=== PATIENT | female | born 1965 | race Caucasian/White ===

== ENCOUNTER 2020-07-14 14:06 | Inpatient (IN) ==
[2020-07-14] MEDS ORDERED: 0.9 % SODIUM CHLORIDE 1,000 ML IV ONE (15:20)
--- NOTE | 2020-07-14 15:20 | Emergency Department Note ---
SOB HPI General Chief Complaint: Shortness of Breath/Dyspnea Stated Complaint: shortness of breath Time Seen by Provider: 07/14/20 15:00 Source: patient Mode of arrival: ambulatory Limitations: no limitations History of Present Illness HPI Narrative: This pleasant 54-year-old female was tested 7 days ago due to upper respiratory signs and symptoms and then 5 days ago was told of her positive test results for COVID. She is having decreased smell, decreased taste, generalized body achiness, temperatures up to 101 or so in the past several days for which she takes ibuprofen, has had cough and some wheezing. Is an asthmatic who takes Flovent 220 mcg 3 puffs twice a day plus Advair 500/51 puff twice daily, Ventolin, DuoNeb nebulizers 6-hour intervals, montelukast once daily, clonazepam as needed, no steroid spray for allergies, etc. She is here because her symptoms seem to be worsening. She reports home oximetry 86-88% sometimes up to 91%. She has had a hard time keeping food and fluids down. She is having diarrhea 4-5 times a day for several days as well as vomiting 2 or 3 times per day. She is taking her second moderately large bottle of Gatorade the first today but still feels quite dry. Normal heart rate in the mid 70s (93 in triage). Related Data Home Medications Medication Instructions Recorded Confirmed clonazepam 1 mg tablet 1 mg PO Q8H PRN tab 09/13/19 07/15/20 levothyroxine 125 mcg tablet 112 mcg PO QDAY 09/13/19 07/15/20 metoprolol succinate 25 mg 25 mg PO QDAY 09/13/19 07/15/20 tablet,extended release 24 hr montelukast 10 mg tablet 10 mg PO QDAY tab 09/13/19 07/15/20 promethazine 25 mg tablet 12.5 mg PO .COMPLEX PRN 09/13/19 07/15/20 tramadol 50 mg tablet 50 mg PO .COMPLEX PRN 09/13/19 07/15/20 diphenhydramine HCl 12.5 mg/5 mL 12.5 mg PO Q8H PRN 09/17/19 07/15/20 oral liquid ipratropium 0.5 mg-albuterol 3 mg 3 ml INHALATION QID PRN 12/30/19 09/16/20 (2.5 mg base)/3 mL nebulization soln nebulizers #1 each 10/28/19 07/14/20 fluticasone propion-salmeterol 1 inh INHALATION BID 07/14/20 07/15/20 [Advair Diskus] fluticasone propionate [Flovent 2 inh INHALATION BID 07/14/20 07/15/20 HFA] Previous Rx's Medication Instructions Recorded albuterol sulfate 90 mcg/actuation 2 puff INHALATION Q4H PRN #18 g 09/17/19 aerosol inhaler hydroxyzine pamoate 25 mg capsule 25 mg PO BID #60 cap 09/17/19 epinephrine 0.3 mg/0.3 mL 0.3 ml IM ONCE #2 each 09/19/19 injection, auto-injector fluticasone 500 mcg-salmeterol 50 1 inh INHALATION BID #60 each 02/03/20 mcg/dose blistr powdr for inhalation Allergies Allergy/AdvReac Type Severity Reaction Status Date / Time latex Allergy Severe Swelling Verified 07/14/20 14:11 of Lip/Tongue/Throat Penicillins Allergy Mild Hives Verified 07/15/20 06:35 codeine AdvReac Mild Nausea Verified 07/15/20 06:35 gluten AdvReac Mild Vomiting Verified 07/15/20 06:35 Review of Systems ROS ROS Narrative: Has had fevers and chills and sweats. Some shortness of breath that is seeming to worsen. She describes as above having some saturations 86-88% at home on an oximeter that she reports as fresh batteries. She reports her usual heart rate to be in the mid 70s. Nausea and vomiting and diarrhea as above. No hematochezia No dysuria Some body aches all over. No pains in her calves. [facility] Narrative Patient History Narrative: Narrative: Medical/Surgical/Family History All Active Problems (Updated 07/14/20 @ 20:04 by Darryl Rodríguez DO) Pneumonia due to COVID-19 virus (Acute) Asthma (Acute) Hypoxia (Acute) Obesity (BMI 30.0-34.9) (Acute) Full code status (Acute) Allergy (Chronic) ROCIO (obstructive sleep apnea) (Chronic) Cat allergy due to both airborne and skin contact (Chronic) Environmental allergies (Chronic) Multiple joint pain (Chronic) Dizziness (Chronic) Pain, unspecified (Chronic) Other specified anemias (Chronic) Nausea and vomiting (Chronic) Elevated liver enzymes (Chronic) Shortness of breath (Chronic) Cough (Chronic) Low back pain (Chronic) Fatigue (Chronic) Vitamin D deficiency (Chronic) Pain of right hip joint (Chronic) Celiac disease (Chronic) Other specified hypothyroidism (Chronic) Essential hypertension (Chronic) Asthma (Chronic) Medical History (Updated 07/14/20 @ 20:04 by Darryl Rodríguez DO) Asthma (Chronic) Bronchitis (Resolved) Bronchospasm (Inactive) Cat allergy due to both airborne and skin contact (Chronic) Celiac disease (Chronic) Cervical strain, acute (Inactive) Cough (Chronic) Diarrhea (Resolved) Dizziness (Chronic) Elevated liver enzymes (Chronic) Environmental allergies (Chronic) Essential hypertension (Chronic) Fatigue (Chronic) Low back pain (Chronic) Multiple joint pain (Chronic) Nausea and vomiting (Chronic) ROCIO (obstructive sleep apnea) (Chronic) Other specified anemias (Chronic) Other specified hypothyroidism (Chronic) Pain of right hip joint (Chronic) Pain, unspecified (Chronic) Shortness of breath (Chronic) Vitamin D deficiency (Chronic) Surgical History History of section (Chronic) History of cholecystectomy (Chronic) History of nasal septoplasty (Chronic) History of surgery on left wrist (Chronic) History of tonsillectomy (Chronic) History of umbilical hernia repair (Chronic) Family History Alcoholism Father Breast cancer Sister Social History Smoking Status: Never smoker Alcohol Intake Frequency: holiday/special occasion only Exam Narrative Narrative: Narrative: General Limitations: no limitations General appearance: alert, in no apparent distress, malaise (Moderate) and nontoxic Head Head: atraumatic and normocephalic Eye Eye: Present normal appearance and EOMI ENT ENT: Present mucous membranes dry and other (Normal midline tongue and uvula. No exudate on the tonsillar bed areas.) Neck Neck: Present trachea midline; Absent lymphadenopathy and thyromegaly Chest Chest: Present symmetric chest wall rise Respiratory Respiratory: Present normal lung sounds bilaterally; Absent respiratory distress, rales/crackles, wheezes, stridor, accessory muscle use and prolonged expiratory phase Cardiovascular Cardiovascular: Present regular rate, normal rhythm and other (Heart rate frequently 90-95.); Absent tachycardia, systolic murmur and diastolic murmur Adbominal Abdominal: Present soft; Absent distention, tenderness, guarding, rebound, rigidity, organomegaly and mass Extremities Extremities: Absent pedal edema, pretibial edema, calf tenderness and cyanosis Back Back: Neurological Neurological: Present alert and oriented X3 Psychiatric Psychiatric: Present normal affect, polite and pleasant; Absent depressed, agitated, anxious and poor eye contact Skin Skin: Present warm and dry; Absent cyanosis and pallor Course Vital Signs Vital signs: Vital Signs Temperature 97.6 F 07/14/20 14:08 Pulse Rate 113 H 07/14/20 14:08 Respiratory Rate 20 07/14/20 14:08 Blood Pressure 150/101 07/14/20 14:08 Pulse Oximetry (%) 95 07/14/20 14:08 Temperature 98.3 F 07/15/20 08:01 Pulse Rate 82 07/15/20 10:01 Respiratory Rate 18 07/15/20 10:01 Blood Pressure 139/87 07/15/20 10:01 Pulse Oximetry (%) 96 07/15/20 10:01 [facility] Narrative Medical decision making narrative: Recent constitutional symptoms plus fever plus chest discomfort plus increasing shortness of breath and a COVID positive patient now on day 7 from the original positive test collection and symptomatic for days prior to that. Because of multiple symptoms and some risk factors we will go ahead with cardiac and respiratory work-up with EKG, chest x-ray, labs. Saturations on room air in the room now around 91 to 99% variable most of the time around 93-94. 3:58 PM - EKG demonstrates sinus rhythm with no ACS. 4:42 PM - chest x-ray results: FINDINGS: There are mild alveolar opacities in the a patchy distribution in both lungs. This is most apparent laterally in the middle third of the left lung. There is also a band of discoid atelectasis above the left diaphragm. No pleural effusion is present. No adenopathy is detected. The heart size is normal. IMPRESSION: Mild bilateral pneumonia 4:43 PM - labs include white count 6.2 hemoglobin and hematocrit in normal ranges. Lactic acid is 1.0. Electrolytes unremarkable. Carbon dioxide is 21. Anion gap is 14. LFTs mildly elevated at 56 and 109 Troponin less than 0.01. Procalcitonin pending. 5:20 PM - saturations dropping occasionally down as low as 87%. We will do ABG. ABG was relatively unremarkable. I spoke with hospitalist who is willing to accept this patient. 7:42 PM - 7:45 PM - spoke with patient regarding remdesivir and received her permission/consent. Lab Data Result diagrams: 07/15/20 04:50 07/15/20 04:50 Labs: Lab Results 07/14/20 07/14/20 07/14/20 Range/Units 15:34 15:34 15:34 WBC 6.2 (4.50-11.00) K/mcL RBC 4.61 (3.59-5.38) M/mcL Hgb 13.9 (11.2-15.7) g/dL Hct 40.8 (34.1-44.9) % MCV 88.5 (80.0-100.0) fL MCH 30.2 (26.0-34.0) pg MCHC 34.1 (31.0-36.0) g/dL RDW 12.9 (11.5-14.5) % Plt Count 162 (140-440) K/mcL MPV 10.2 (7.4-10.4) fL Gran % 65.1 (38.0-78.0) % Lymph % (Auto) 26.5 (15.5-49.0) % Price % (Auto) 7.6 (1.0-12.0) % Eos % (Auto) 0.6 (0.0-7.0) % Baso % (Auto) 0.2 (0.0-2.0) % Gran # 4.02 (1.80-8.00) K/mcL Lymph # (Auto) 1.64 (1.50-4.80) K/mcL Price # (Auto) 0.47 (0.10-0.90) K/mcL Eos # (Auto) 0.04 (0.00-0.70) K/mcL Baso # (Auto) 0.01 (0.00-0.30) K/mcL VBG Lactic Acid 1.0 (0.5-2.0) mmol/L Sodium (133-145) mmol/L Potassium (3.3-5.1) mmol/L Chloride (96-108) mmol/L Carbon Dioxide (22-30) mmol/L Anion Gap (8-16) BUN (6-20) mg/dl Creatinine (0.6-1.1) mg/dl GFR Calculation Glucose (70-105) mg/dL Calcium (8.6-10.4) mg/dl Total Bilirubin (0.0-1.0) mg/dL AST (0-37) U/l ALT (0-40) U/l Alkaline Phosphatase (39-117) U/L Troponin T (0-0.03) ng/ml Total Protein (5.9-8.4) gm/dL Albumin (3.2-5.2) gm/dL Globulin (2.2-3.7) gm/dL Albumin/Globulin Ratio (1.0-2.3) Procalcitonin 0.11 (<0.10) ng/mL 07/14/20 07/14/20 Range/Units 15:34 15:34 WBC (4.50-11.00) K/mcL RBC (3.59-5.38) M/mcL Hgb (11.2-15.7) g/dL Hct (34.1-44.9) % MCV (80.0-100.0) fL MCH (26.0-34.0) pg MCHC (31.0-36.0) g/dL RDW (11.5-14.5) % Plt Count (140-440) K/mcL MPV (7.4-10.4) fL Gran % (38.0-78.0) % Lymph % (Auto) (15.5-49.0) % Price % (Auto) (1.0-12.0) % Eos % (Auto) (0.0-7.0) % Baso % (Auto) (0.0-2.0) % Gran # (1.80-8.00) K/mcL Lymph # (Auto) (1.50-4.80) K/mcL Price # (Auto) (0.10-0.90) K/mcL Eos # (Auto) (0.00-0.70) K/mcL Baso # (Auto) (0.00-0.30) K/mcL VBG Lactic Acid (0.5-2.0) mmol/L Sodium 138 (133-145) mmol/L Potassium 4.0 (3.3-5.1) mmol/L Chloride 103 (96-108) mmol/L Carbon Dioxide 21 L (22-30) mmol/L Anion Gap 14.0 (8-16) BUN 13 (6-20) mg/dl Creatinine 0.9 (0.6-1.1) mg/dl GFR Calculation 71 Glucose 108 H (70-105) mg/dL Calcium 9.2 (8.6-10.4) mg/dl Total Bilirubin 0.5 (0.0-1.0) mg/dL AST 56 H (0-37) U/l ALT 109 H (0-40) U/l Alkaline Phosphatase 118 H (39-117) U/L Troponin T < 0.01 (0-0.03) ng/ml Total Protein 7.0 (5.9-8.4) gm/dL Albumin 4.0 (3.2-5.2) gm/dL Globulin 3.0 (2.2-3.7) gm/dL Albumin/Globulin Ratio 1.3 (1.0-2.3) Procalcitonin (<0.10) ng/mL Discharge Plan Patient/Caregiver Discharge Instructions Pt seen by ENVIRONMENTAL JOURNALIST/PA only: No Clinical Impression: Pneumonia due to COVID-19 virus, Hypoxia, Obesity (BMI 30.0-34.9), Full code status Asthma Qualifiers: Asthma severity: severe Asthma persistence: persistent Asthma complication type: unspecified Qualified Code(s): J45.50 - Severe persistent asthma, uncomplicated Patient Disposition: Xfer As Inpt ([facility]) Discharge Date/Time: 07/14/20 20:48
[2020-07-14] MEDS ORDERED: ONDANSETRON 4 MG/2 ML VIAL IV ONE ×3 (15:21→18:49)
[2020-07-14 16:05] LABS: Basophils # (Auto) 0.01 K/mcL (0.00-0.30); Basophils % (Auto) 0.2 % (0.0-2.0); Eosinophils # (Auto) 0.04 K/mcL (0.00-0.70); Eosinophils % (Auto) 0.6 % (0.0-7.0); Granulocytes % (Auto) 65.1 % (38.0-78.0); Hematocrit 40.8 % (34.1-44.9); Hemoglobin 13.9 g/dL (11.2-15.7); Lymphocytes # (Auto) 1.64 K/mcL (1.50-4.80); Lymphocytes % (Auto) 26.5 % (15.5-49.0); Mean Cell Volume 88.5 fL (80.0-100.0); Mean Corpuscular HGB Conc 34.1 g/dL (31.0-36.0); Mean Platelet Volume 10.2 fL (7.4-10.4); Monocytes # (Auto) 0.47 K/mcL (0.10-0.90); Monocytes % (Auto) 7.6 % (1.0-12.0); Platelet Count 162 K/mcL (140-440); RBC 4.61 M/mcL (3.59-5.38); Red Cell Distribution Width 12.9 % (11.5-14.5); WBC 6.2 K/mcL (4.50-11.00)
--- NOTE | 2020-07-14 16:28 | XRay Report ---
HISTORY: Short of breath and positive Covid test FINDINGS: There are mild alveolar opacities in the a patchy distribution in both lungs. This is most apparent laterally in the middle third of the left lung. There is also a band of discoid atelectasis above the left diaphragm. No pleural effusion is present. No adenopathy is detected. The heart size is normal. IMPRESSION: Mild bilateral pneumonia Interpreted and Authenticated by: Jaime Evans 07/14/20
[2020-07-14 16:29] LABS: ALT/SGPT 109 U/l (0-40); AST/SGOT 56 U/l (0-37); Albumin/Globulin Ratio 1.3 (1.0-2.3); Alkaline Phosphatase 118 U/L (39-117); Bilirubin,Total 0.5 mg/dL (0.0-1.0); Blood Urea Nitrogen 13 mg/dl (6-20); Calcium 9.2 mg/dl (8.6-10.4); Carbon Dioxide 21 mmol/L (22-30); Chloride 103 mmol/L (96-108); Glomerular Filtration Rate 71; Glucose 108 mg/dL (70-105)
[2020-07-14] MEDS ORDERED: ACETAMINOPHEN 325 MG TABLET PO ONE (17:39)
[2020-07-14] MEDS ORDERED: DEXAMETHASONE 4 MG TABLET PO ONE (18:39)
--- NOTE | 2020-07-14 18:59 | Internal Med History&Physical ---
HPI History of Present Illness Patient information: Note initiated : 07/14/20 at 6:57 pm Service Date, if different from initiated Date: [] Patient: Kristen Mckeon a 54 y/o F admitted on for shortness of breath. Chief Complaint: Weakness, shortness of breath History of present illness: Ms. Mckeon is a 54 year old F with a history of asthma/hypothyroidism/hypertension who works at [employer] Patient has been experiencing things of low-grade fever weakness and malaise and has been tested for COVID last Monday and subsequently on which came back positive. Since then patient has self quarantined at home but has noticed worsening of her shortness of breath/weakness. She presents today to the ER significantly hypoxic in low 80s requiring 2 L oxygen to achieve saturation to 92%. Chest imaging consistent with bilateral infiltrates/COVID pneumonia. Patient was started on antiviral loading dose/dexamethasone after discussion of risks and benefits. Subsequently hospitalist service was consulted. At the time of my evaluation patient is alert and oriented. She is able to answer most of the questions. She endorses to exposure to sick contacts including multiple residents at [facility] with COVID positive. Denies loss of smell but endorses lack of appetite. Denies diarrhea, dysuria, headache, photophobia or chest palpitation. Review of systems 10 point review system was performed and is negative except for ones cussed above PFSH PFSH All Active Problems (Updated 07/14/20 @ 15:18 by Darryl Rodríguez DO) Allergy (Chronic) ROCIO (obstructive sleep apnea) (Chronic) Cat allergy due to both airborne and skin contact (Chronic) Environmental allergies (Chronic) Multiple joint pain (Chronic) Dizziness (Chronic) Pain, unspecified (Chronic) Other specified anemias (Chronic) Nausea and vomiting (Chronic) Elevated liver enzymes (Chronic) Shortness of breath (Chronic) Cough (Chronic) Low back pain (Chronic) Fatigue (Chronic) Vitamin D deficiency (Chronic) Pain of right hip joint (Chronic) Celiac disease (Chronic) Other specified hypothyroidism (Chronic) Essential hypertension (Chronic) Asthma (Chronic) Medical History (Updated 07/14/20 @ 15:18 by Darryl Rodríguez DO) Asthma (Chronic) Bronchitis (Resolved) Bronchospasm (Inactive) Cat allergy due to both airborne and skin contact (Chronic) Celiac disease (Chronic) Cervical strain, acute (Inactive) Cough (Chronic) Diarrhea (Resolved) Dizziness (Chronic) Elevated liver enzymes (Chronic) Environmental allergies (Chronic) Essential hypertension (Chronic) Fatigue (Chronic) Low back pain (Chronic) Multiple joint pain (Chronic) Nausea and vomiting (Chronic) ROCIO (obstructive sleep apnea) (Chronic) Other specified anemias (Chronic) Other specified hypothyroidism (Chronic) Pain of right hip joint (Chronic) Pain, unspecified (Chronic) Shortness of breath (Chronic) Vitamin D deficiency (Chronic) Surgical History History of section (Chronic) History of cholecystectomy (Chronic) History of nasal septoplasty (Chronic) History of surgery on left wrist (Chronic) History of tonsillectomy (Chronic) History of umbilical hernia repair (Chronic) Family History Father Alcoholism Sister Breast cancer Social History (Updated 02/03/20 @ 15:20 by Simon Thomas MD) marital status: occupational status: employed physical activity: walking and other smoking status: Never smoker alcohol intake frequency: holiday/special occasion only MEDS/ALLERGIES Home Medications and Allergies Home Medications Medication Instructions Recorded Confirmed Type clonazepam 1 mg tablet 1 mg PO Q8H PRN tab 09/13/19 07/14/20 History levothyroxine 125 mcg tablet 125 mcg PO QDAY 09/13/19 07/14/20 History metoprolol succinate 25 mg 25 mg PO QDAY 09/13/19 07/14/20 History tablet,extended release 24 hr montelukast 10 mg tablet 10 mg PO QDAY tab 09/13/19 07/14/20 History promethazine 25 mg tablet 12.5 mg PO .COMPLEX PRN 09/13/19 07/14/20 History tramadol 50 mg tablet 50 mg PO .COMPLEX PRN 09/13/19 07/14/20 History albuterol sulfate 90 mcg/actuation 2 puff INHALATION Q4H PRN #18 g 09/17/19 07/14/20 Rx aerosol inhaler diphenhydramine HCl 12.5 mg/5 mL 12.5 mg PO Q8H PRN 09/17/19 07/14/20 History oral liquid hydroxyzine pamoate 25 mg capsule 25 mg PO BID #60 cap 09/17/19 07/14/20 Rx epinephrine 0.3 mg/0.3 mL 0.3 ml IM ONCE #2 each 09/19/19 07/14/20 Rx injection, auto-injector ipratropium 0.5 mg-albuterol 3 mg 3 ml INHALATION QID PRN 10/28/19 07/14/20 History (2.5 mg base)/3 mL nebulization soln nebulizers #1 each 10/28/19 07/14/20 History fluticasone 500 mcg-salmeterol 50 1 inh INHALATION BID #60 each 02/03/20 07/14/20 Rx mcg/dose blistr powdr for inhalation fluticasone propion-salmeterol 1 inh INHALATION BID 07/14/20 07/14/20 History [Advair Diskus] fluticasone propionate [Flovent 3 inh INHALATION BID 07/14/20 07/14/20 History HFA] Allergies Allergy/AdvReac Type Severity Reaction Status Date / Time cat dander Allergy Severe Swelling Verified 07/14/20 14:11 of Lip/Tongue/Throat latex Allergy Severe Swelling Verified 07/14/20 14:11 of Lip/Tongue/Throat Penicillins Allergy Hives Verified 07/14/20 14:11 gluten AdvReac Severe Vomiting Verified 07/14/20 14:11 codeine AdvReac Nausea Verified 07/14/20 14:11 EXAM Constitutional Vitals: Temp Pulse Resp BP Pulse Ox 97.6 F 95 H 20 141/84 95 07/14/20 14:08 07/14/20 18:01 07/14/20 14:08 07/14/20 18:01 07/14/20 18:01 Anxious Head normocephalic Oral cavity moist No ear or nose discharge Eye movement symmetrical Neck supple no lymphadenopathy S1-S2 borderline tachycardia Tachypneic but nonlabored breathing Nondistended nontender abdomen Lower extremity no cyanosis clubbing or joint swelling Skin no suspicious lesion Psych anxious but alert cooperative Neuro normal higher function DATA Data Completed and Pending Labs: Labs from last 24 hours 07/14/20 07/14/20 07/14/20 15:34 15:34 15:34 WBC RBC Hgb Hct MCV MCH MCHC RDW Plt Count MPV Gran % Lymph % (Auto) [place] % (Auto) Eos % (Auto) Baso % (Auto) Gran # Lymph # (Auto) [place] # (Auto) Eos # (Auto) Baso # (Auto) VBG Lactic Acid Sodium 138 Potassium 4.0 Chloride 103 Carbon Dioxide 21 L Anion Gap 14.0 BUN 13 Creatinine 0.9 GFR Calculation 71 Glucose 108 H Calcium 9.2 Total Bilirubin 0.5 AST 56 H ALT 109 H Alkaline Phosphatase 118 H Troponin T < 0.01 Total Protein 7.0 Albumin 4.0 Globulin 3.0 Albumin/Globulin Ratio 1.3 Procalcitonin 0.11 07/14/20 07/14/20 15:34 15:34 WBC 6.2 RBC 4.61 Hgb 13.9 Hct 40.8 MCV 88.5 MCH 30.2 MCHC 34.1 RDW 12.9 Plt Count 162 MPV 10.2 Gran % 65.1 Lymph % (Auto) 26.5 [place] % (Auto) 7.6 Eos % (Auto) 0.6 Baso % (Auto) 0.2 Gran # 4.02 Lymph # (Auto) 1.64 [place] # (Auto) 0.47 Eos # (Auto) 0.04 Baso # (Auto) 0.01 VBG Lactic Acid 1.0 Sodium Potassium Chloride Carbon Dioxide Anion Gap BUN Creatinine GFR Calculation Glucose Calcium Total Bilirubin AST ALT Alkaline Phosphatase Troponin T Total Protein Albumin Globulin Albumin/Globulin Ratio Procalcitonin A/P Narrative A/P Narrative: * Acute hypoxic respiratory failure-continue supplemental oxygen/initiate COVID- 19 treatment with Remdesivir/dexamethasone based on disease severity/oxygen requirement with sats less than 94% * COVID-19 pneumonia-bilateral infiltrates. Continue close monitoring. Contact precautions * History of reactive disease continue bronchodilators * Hypertension continue metoprolol * Hypothyroidism continue oxygen * Prophylaxis heparin Plan * Inpatient hospitalization in light of COVID pneumonia with hypoxic respiratory failure * Antiviral/dexamethasone * COVID-19 precautions * Pre-existing medical condition management on home medications * Nutrition support Time Spent With Patient Time: Total time spent is greater than 50% in coordination of care (as documented) at patient's floor/unit and/or counseling patient:
[2020-07-14] MEDS ORDERED: REMDESIVIR 200 MG in 0.9 % SODIUM CHLORIDE 250 ML IV SCH (19:15)
[2020-07-14] MEDS ORDERED: ONDANSETRON 4 MG/2 ML VIAL IV PRN (20:52)
[2020-07-14] MEDS ORDERED: EPINEPHRINE IM SCH (20:52)
[2020-07-14] MEDS ORDERED: POTASSIUM CHLORIDE 40 MEQ in DEXTROSE 5% IN WATER 500 ML IV PRN (20:52)
[2020-07-14] MEDS ORDERED: METOPROLOL TARTRATE 5 MG/5 ML VIAL IV PRN (20:52)
[2020-07-14] MEDS ORDERED: clonazePAM 1 MG TABLET PO PRN (20:52)
[2020-07-14] MEDS ORDERED: ONDANSETRON 4 MG ODT TABLET SL PRN (20:52)
[2020-07-14] MEDS ORDERED: hydrALAZINE 20 MG/ML VIAL IV PRN (20:52)
[2020-07-14] MEDS ORDERED: PROMETHAZINE 25 MG TABLET PO PRN (20:52)
[2020-07-14] MEDS ORDERED: BISACODYL 10 MG SUPP.RECT PR PRN (20:52)
[2020-07-14] MEDS ORDERED: MAGNESIUM SULFATE 2 GM/50 ML BAG IV PRN (20:52)
[2020-07-14] MEDS ORDERED: POLYETHYLENE GLYCOL 3350 17 GM PACKET PO PRN (20:52)
[2020-07-14] MEDS ORDERED: ACETAMINOPHEN 650 MG/65 ML BOTTLE IV PRN (20:52)
[2020-07-14] MEDS ORDERED: POTASSIUM CHLORIDE 20 MEQ PACKET PO PRN (20:52)
[2020-07-14] MEDS ORDERED: IPRATROPIUM/ALBUTEROL 3 ML AMPUL.NEB NEB PRN (20:52)
[2020-07-14] MEDS ORDERED: ALBUTEROL SULFATE 200 PUFF INHALER INH PRN (20:52)
[2020-07-14] MEDS ORDERED: FLUTICASONE/SALMETEROL 500/50 INHALER #14 INH SCH (21:00)
[2020-07-14] MEDS ORDERED: diphenhydrAMINE 12.5 MG/5 ML ORAL.SOL PO PRN (21:03)
[2020-07-14] MEDS: DOCUSATE SODIUM 100 MG CAPSULE PO SCH (21:19)
[2020-07-14] MEDS: SENNOSIDES/DOCUSATE SODIUM 1 TAB TABLET PO SCH (21:19)
[2020-07-14] MEDS: 0.9 % SODIUM CHLORIDE 1,000 ML IV SCH (21:37)
[2020-07-14] MEDS: HEPARIN 5,000 UNIT/ML VIAL SQ SCH (21:37)
[2020-07-14] MEDS: traMADol 50 MG TABLET PO PRN (22:44)
[2020-07-14] MEDS: 0.9 % SODIUM CHLORIDE 10 ML SYRINGE IV SCH (22:55)
[2020-07-15] MEDS: ACETAMINOPHEN 325 MG TABLET PO PRN ×2 (00:44→04:29)
[2020-07-15] MEDS: 0.9 % SODIUM CHLORIDE 10 ML SYRINGE IV SCH ×3 (04:51→20:22)
[2020-07-15 06:34] LABS: Hematocrit 38.8 % (34.1-44.9); Hemoglobin 12.6 g/dL (11.2-15.7); Mean Cell Volume 90.7 fL (80.0-100.0); Mean Corpuscular HGB Conc 32.5 g/dL (31.0-36.0); Mean Platelet Volume 10.4 fL (7.4-10.4); Platelet Count 158 K/mcL (140-440); RBC 4.28 M/mcL (3.59-5.38); Red Cell Distribution Width 12.8 % (11.5-14.5); WBC 4.3 K/mcL (4.50-11.00)
[2020-07-15 06:52] LABS: ALT/SGPT 122 U/l (0-40); AST/SGOT 88 U/l (0-37); Albumin 3.6 gm/dL (3.2-5.2); Albumin/Globulin Ratio 1.2 (1.0-2.3); Alkaline Phosphatase 116 U/L (39-117); Bilirubin,Direct < 0.2 mg/dL (0.0-0.3); Bilirubin,Total 0.4 mg/dL (0.0-1.0); Blood Urea Nitrogen 12 mg/dl (6-20); Calcium 8.6 mg/dl (8.6-10.4); Carbon Dioxide 21 mmol/L (22-30); Chloride 105 mmol/L (96-108); Globulin 2.9 gm/dL (2.2-3.7); Glomerular Filtration Rate 82; Glucose 208 mg/dL (70-105); Lactate Dehydrogenase 269 U/L (94-250); Phosphorous 3.1 mg/dL (2.7-4.5); Triglycerides 63 mg/dl (<150); Uric Acid 3.8 mg/dL (2.5-8.0)
[2020-07-15] MEDS: LEVOTHYROXINE 125 MCG TABLET PO SCH (07:47)
[2020-07-15] MEDS: traMADol 50 MG TABLET PO PRN (07:48)
[2020-07-15 08:43] LABS: Lymphocytes % 24 % (15-49); Monocytes % (Manual) 4 % (1-12); Platelet Estimate NORMAL (NORMAL); RBC Morphology NORMAL (NORMAL); Segmented Neutrophils % 72 % (38-78)
[2020-07-15] MEDS ORDERED: FLUTICASONE HFA 220MCG INHALER INH SCH (09:00)
--- NOTE | 2020-07-15 09:05 | XRay Report ---
HISTORY: Short of breath, follow-up bilateral pneumonia FINDINGS: There are worsening bilateral alveolar infiltrates in both lungs. Greatest consolidation is in the left lower lobe. Patient is developing some atelectasis in the left lower lobe resulting in elevation of the left diaphragm. The heart size is normal. No pleural effusion is detected. IMPRESSION: Worsening bilateral pneumonia Interpreted and Authenticated by: Jaime Evans 07/15/20
[2020-07-15] MEDS: DOCUSATE SODIUM 100 MG CAPSULE PO SCH ×2 (09:33→20:07)
[2020-07-15] MEDS: MONTELUKAST 10 MG TABLET PO SCH (09:41)
[2020-07-15] MEDS: hydrOXYzine 25 MG TABLET PO SCH ×2 (09:41→20:21)
[2020-07-15] MEDS: HEPARIN 5,000 UNIT/ML VIAL SQ SCH ×2 (09:41→20:22)
[2020-07-15] MEDS: REMDESIVIR 100 MG in 0.9 % SODIUM CHLORIDE 250 ML IV SCH (09:42)
[2020-07-15] MEDS: DEXAMETHASONE 4 MG TABLET PO SCH (09:42)
[2020-07-15] MEDS: MULTIVIT,THER IRON,CA,FA & MIN 1 TABLET PO SCH (09:42)
[2020-07-15] MEDS: METOPROLOL SUCCINATE 25 MG TAB.XL.24H PO SCH (09:42)
--- NOTE | 2020-07-15 12:24 | Internal Med Progress Note ---
SUBJECTIVE Subjective Patient information: Note initiated : 07/15/20 at 12:22 pm Service Date, if different from initiated Date: [] Patient: Kristen Mckeon a 54 y/o F admitted on 07/14/20 for shortness of breath. Chief Complaint: [] History of present illness: Ms. Mckeon is a 54 year old F with a history of asthma/hypothyroidism/hypertension who works at [email or web address]. Patient has been experiencing things of low-grade fever weakness and malaise and has been tested for COVID last Monday and subsequently on which came back positive. Since then patient has self quarantined at home but has noticed worsening of her shortness of breath/weakness. She presents today to the ER significantly hypoxic in low 80s requiring 2 L oxygen to achieve saturation to 92%. Chest imaging consistent with bilateral infiltrates/COVID pneumonia. Patient was started on antiviral loading dose/dexamethasone after discussion of risks and benefits. Subsequently hospitalist service was consulted. At the time of my evaluation patient is alert and oriented. She is able to answer most of the questions. She endorses to exposure to sick contacts including multiple residents at [facility] with COVID positive. Denies loss of smell but endorses lack of appetite. Denies diarrhea, dysuria, headache, photophobia or chest palpitation. 07/15-patient currently stable continuing on dexamethasone/remdesivir treatment. White count 4.3 LFTs gradually up trending but within 3 times upper normal limit. Continue monitoring. Interval chest imaging worsening bilateral pneumonia. Currently on 1.5 L oxygen. Constitutional Vitals: Vital Signs Temp Pulse Resp BP Pulse Ox 98.4 F 65 15 115/76 93 07/15/20 12:01 07/15/20 12:01 07/15/20 12:01 07/15/20 12:01 07/15/20 12:01 Period Temp Pulse Resp BP Sys/Lazo Pulse Ox Last 24 Hr 96.7 F-98.4 F 64-113 11-24 99-161/52-101 88-96 Intake and Output 07/14/20 07/15/20 07/15/20 21:59 05:59 13:59 Intake Total 1021 709 930 Output Total 700 Balance 1021 9 930 Weight 83.506 kg Intake & Output: Intake & Output 07/14/20 07/15/2020 21:59 05:59 13:59 Intake Total 1021 709 930 Output Total 700 Balance 1021 9 930 Weight 83.506 kg Intake: Nourishment/Supplement quantity 360 (ml) IV 1021 229 250 Sodium Chloride 0.9% 1,000 ml @ 1000 Wide Open IV [facility] Rx#: [id number] Remdesivir 100 mg In Sodium 21 229 250 Chloride 0.9% 250 ml @ 500 mls/ hr IV Q24H [facility] Rx#:[id number] Oral 120 680 Output: Void Amount 700 Other: Feeding Ability Independent Nourishment/Supplement name Chicken broth Urine Appearance Clear Urine Color Bright Yellow alert but very anxious Minimally labored breathing Telemetry no events OBJ DATA Labs CBC & Chem 7: 07/15/20 04:50 07/15/20 04:50 Labs: Abnormal Lab Results 07/15/20 07/15/20 07/14/20 04:50 04:50 15:34 WBC 4.3 L Carbon Dioxide 21 L 21 L Glucose 208 H 108 H GGT 160 H AST 88 H 56 H ALT 122 H 109 H Alkaline Phosphatase 118 H Lactate Dehydrogenase 269 H Meds: Medications Acetaminophen (Tylenol) 650 mg PO Q4-6HP PRN; Protocol PRN Reason: Per Pain Protocol/Fever > 101 Last Admin: 07/15/20 04:29 Dose: 650 mg Documented by: Albuterol Sulfate (Ventolin) 2 puff INH Q4HP PRN PRN Reason: shortness of breath or wheezin Albuterol/Ipratropium (Duoneb) 3 ml NEB QIDP PRN PRN Reason: Wheezing Bisacodyl (Dulcolax) 10 mg LA Q2-3DAYS PRN PRN Reason: Constipation Clonazepam (Klonopin) 1 mg PO Q8H PRN PRN Reason: Anxiety Last Admin: 07/15/20 09:41 Dose: 1 mg Documented by: Dexamethasone (Decadron) 6 mg PO DAILY [facility] Last Admin: 07/15/20 09:42 Dose: 6 mg Documented by: Diphenhydramine HCl (Bendadryl) 12.5 mg PO Q8HP PRN PRN Reason: Allergic Reaction Docusate Sodium (Colace) 100 mg PO BID [facility] Last Admin: 07/15/20 09:33 Dose: Not Given Documented by: Fluticasone Propionate (Flovent Hfa 220mcg) 3 puff INH BID [facility] Heparin Sodium (Porcine) (Heparin) 5,000 unit SQ Q12 [facility] Last Admin: 07/15/20 09:41 Dose: 5,000 unit Documented by: Hydralazine HCl (Apresoline) 10 mg IV Q4-6HP PRN PRN Reason: Hypertension Hydroxyzine HCl (Atarax) 25 mg PO BID [facility] Last Admin: 07/15/20 09:41 Dose: 25 mg Documented by: Potassium Chloride 40 meq/ (Dextrose) 520 mls @ 130 mls/hr IV UD PRN PRN Reason: K+ = or < 3.5 Magnesium Sulfate (Magnesium Sulfate) 2 gm in 50 mls @ 50 mls/hr IV UD PRN PRN Reason: MG = or < 1.7 Sodium Chloride (Sodium Chloride 0.9%) 1,000 mls @ 50 mls/hr IV .Q20H [facility] Stop: 07/17/20 08:51 Last Admin: 07/14/20 21:37 Dose: 50 mls/hr Documented by: Acetaminophen (Ofirmev) 650 mg in 65 mls @ 130 mls/hr IV Q6HP PRN; Protocol PRN Reason: Per Pain Protocol/Fever > 101 REMDESIVIR 100 mg/ Sodium (Chloride) 250 mls @ 500 mls/hr IV Q24H [facility] Stop: 07/18/20 09:29 Last Infusion: 07/15/20 11:23 Dose: Infused Documented by: Iron Carb/Multivit/[place]/Folic Acid (Multivitamin W/Minerals) 1 tab PO DAILY [facility] Last Admin: 07/15/20 09:42 Dose: 1 tab Documented by: Levothyroxine Sodium (Synthroid) 125 mcg PO QAMAC [facility] Last Admin: 07/15/20 07:47 Dose: 125 mcg Documented by: Metoprolol Succinate (Toprol Xl) 25 mg PO QDAY [facility] Last Admin: 07/15/20 09:42 Dose: 25 mg Documented by: Metoprolol Tartrate (Lopressor) 5 mg IV Q5M PRN PRN Reason: Heart Rate > 140 bpm Montelukast Sodium (Singular) 10 mg PO QDAY [facility] Last Admin: 07/15/20 09:41 Dose: 10 mg Documented by: Ondansetron HCl (Zofran Odt) 4 mg SL Q4-6HP PRN; Protocol PRN Reason: Nausea And Vomiting Ondansetron HCl (Zofran) 4 mg IV Q4-6HP PRN; Protocol PRN Reason: Nausea And Vomiting Polyethylene Glycol (Miralax) 17 gm PO DAILYP PRN PRN Reason: Constipation Potassium Chloride (Klor-Con) 40 meq PO DAILYP PRN PRN Reason: K+ < 3.5 Promethazine HCl (Phenergan) 12.5 mg PO Q6-8HP PRN PRN Reason: Nausea Fluticasone/Salmeterol (Advair 500-50 Diskus) 1 puff INH BID [facility] Senna/Docusate Sodium (Senna Plus Tablet) 1 tab PO HS [facility] Last Admin: 07/14/20 21:19 Dose: Not Given Documented by: Sodium Chloride (Saline Flush) 10 ml IV Q8 [facility] Last Admin: 07/15/20 04:51 Dose: Not Given Documented by: Tramadol HCl (Ultram) 50 mg PO Q6-8HP PRN; Protocol PRN Reason: Pain Last Admin: 07/15/20 07:48 Dose: 50 mg Documented by: A/P Narrative A/P Narrative: * Acute hypoxic respiratory failure-continue supplemental oxygen * COVID-19 pneumonia-worsening bilateral infiltrates on chest imaging. Serial imaging, supplemental oxygen, Remdesivir/dexamethasone * History of reactive disease continue bronchodilators * Hypertension continue metoprolol * Hypothyroidism continue oxygen * Prophylaxis heparin Plan * Continue COVID-19 precautions * Antiviral/dexamethasone * Serial chest imaging * Pre-existing medical condition management on home medications * Nutrition support Time Spent With Patient Time: Total time spent is greater than 50% in coordination of care (as documented) at patient's floor/unit and/or counseling patient:
[2020-07-15] MEDS: FLUTICASONE/SALMETEROL 500/50 INHALER #14 INH SCH ×2 (15:20→20:21)
[2020-07-15] MEDS: 0.9 % SODIUM CHLORIDE 1,000 ML IV SCH (17:13)
[2020-07-15] MEDS: SENNOSIDES/DOCUSATE SODIUM 1 TAB TABLET PO SCH (20:07)
[2020-07-15] MEDS: FLUTICASONE HFA 220MCG INHALER INH SCH (20:21)
[2020-07-16] MEDS: 0.9 % SODIUM CHLORIDE 10 ML SYRINGE IV SCH ×3 (04:58→20:24)
[2020-07-16 06:15] LABS: Hematocrit 35.8 % (34.1-44.9); Hemoglobin 11.7 g/dL (11.2-15.7); Mean Cell Volume 91.3 fL (80.0-100.0); Mean Corpuscular HGB Conc 32.7 g/dL (31.0-36.0); Mean Platelet Volume 10.5 fL (7.4-10.4); Platelet Count 170 K/mcL (140-440); RBC 3.92 M/mcL (3.59-5.38); Red Cell Distribution Width 12.8 % (11.5-14.5); WBC 8.5 K/mcL (4.50-11.00)
[2020-07-16 07:26] LABS: ALT/SGPT 171 U/l (0-40); AST/SGOT 114 U/l (0-37); Albumin/Globulin Ratio 1.1 (1.0-2.3); Alkaline Phosphatase 103 U/L (39-117); Bilirubin,Direct < 0.2 mg/dL (0.0-0.3); Bilirubin,Total 0.2 mg/dL (0.0-1.0); Blood Urea Nitrogen 12 mg/dl (6-20); Calcium 8.4 mg/dl (8.6-10.4); Carbon Dioxide 21 mmol/L (22-30); Chloride 108 mmol/L (96-108); Globulin 2.7 gm/dL (2.2-3.7); Glomerular Filtration Rate 97; Glucose 152 mg/dL (70-105); Lactate Dehydrogenase 245 U/L (94-250); Phosphorous 2.8 mg/dL (2.7-4.5); Triglycerides 64 mg/dl (<150); Uric Acid 2.9 mg/dL (2.5-8.0)
[2020-07-16] MEDS: LEVOTHYROXINE 125 MCG TABLET PO SCH (08:00)
[2020-07-16 08:33] LABS: Lymphocytes % 15 % (15-49); Monocytes % (Manual) 8 % (1-12); Platelet Estimate NORMAL (NORMAL); RBC Morphology NORMAL (NORMAL); Reactive Lymphocytes 1 % (0-2); Segmented Neutrophils % 76 % (38-78)
[2020-07-16] MEDS: FLUTICASONE/SALMETEROL 500/50 INHALER #14 INH SCH ×2 (09:48→20:23)
[2020-07-16] MEDS: HEPARIN 5,000 UNIT/ML VIAL SQ SCH ×2 (09:49→20:07)
[2020-07-16] MEDS: MONTELUKAST 10 MG TABLET PO SCH (09:49)
[2020-07-16] MEDS: METOPROLOL SUCCINATE 25 MG TAB.XL.24H PO SCH (09:49)
[2020-07-16] MEDS: DEXAMETHASONE 4 MG TABLET PO SCH (09:49)
[2020-07-16] MEDS: FLUTICASONE HFA 220MCG INHALER INH SCH ×2 (09:49→20:24)
[2020-07-16] MEDS: MULTIVIT,THER IRON,CA,FA & MIN 1 TABLET PO SCH (09:49)
[2020-07-16] MEDS: hydrOXYzine 25 MG TABLET PO SCH ×2 (09:49→20:07)
[2020-07-16] MEDS: DOCUSATE SODIUM 100 MG CAPSULE PO SCH ×2 (09:50→20:24)
[2020-07-16] MEDS: REMDESIVIR 100 MG in 0.9 % SODIUM CHLORIDE 250 ML IV SCH (09:50)
[2020-07-16] MEDS ORDERED: FLU VACC QS2020-21(6MOS UP)/PF 60 MCG/0.5 ML SYRINGE IM ONE (10:00)
[2020-07-16] MEDS: traMADol 50 MG TABLET PO PRN ×2 (10:10→20:07)
--- NOTE | 2020-07-16 11:12 | Internal Med Progress Note ---
SUBJECTIVE Subjective Patient information: Note initiated : 07/16/20 at 11:09 am Service Date, if different from initiated Date: [] Patient: Kristen Mckeon a 54 y/o F admitted on 07/14/20 for shortness of breath. Chief Complaint: History of present illness: Ms. Mckeon is a 54 year old F with a history of asthma/hypothyroidism/hypertension who works at [employer]. Patient has been experiencing things of low-grade fever weakness and malaise and has been tested for COVID last Monday and subsequently on which came back positive. Since then patient has self quarantined at home but has noticed worsening of her shortness of breath/weakness. She presents today to the ER significantly hypoxic in low 80s requiring 2 L oxygen to achieve saturation to 92%. Chest imaging consistent with bilateral infiltrates/COVID pneumonia. Patient was started on antiviral loading dose/dexamethasone after discussion of risks and benefits. Subsequently hospitalist service was consulted. At the time of my evaluation patient is alert and oriented. She is able to answer most of the questions. She endorses to exposure to sick contacts including multiple residents at [facility] with COVID positive. Denies loss of smell but endorses lack of appetite. Denies diarrhea, dysuria, headache, photophobia or chest palpitation. 07/15-patient currently stable continuing on dexamethasone/remdesivir treatment. White count 4.3 LFTs gradually up trending but within 3 times upper normal limit. Continue monitoring. Interval chest imaging worsening bilateral pneumonia. Currently on 1.5 L oxygen. 07/16-patient feels weak and lethargic however currently on 1.5 L oxygen. No overnight events including fever chills. White count 8.5. Repeat chest imaging in a.m.LFTs gradually up trending with ALT 171 AST 114. On antiviral treatment. No additional concerns per nursing staff. Maintaining COVID-19 precautions Constitutional Vitals: Vital Signs Temp Pulse Resp BP Pulse Ox 97.8 F 63 15 112/62 95 07/16/20 08:01 07/16/20 08:01 07/16/20 08:01 07/16/20 08:01 07/16/20 08:01 Period Temp Pulse Resp BP Sys/Lazo Pulse Ox Last 24 Hr 97.2 F-98.4 F 58-81 10-23 101-140/58-90 91-95 Intake and Output 07/15/20 07/16/20 07/16/20 21:59 05:59 13:59 Intake Total 1885 300 Output Total 270 750 550 Balance 1615 -450 -550 Weight 85.185 kg alert and oriented Nonlabored breathing Feels exhausted No telemetry events Intake & Output: Intake & Output 07/15/20 07/16/20 07/16/20 21:59 05:59 13:59 Intake Total 1885 300 Output Total 270 750 550 Balance 1615 -450 -550 Weight 85.185 kg Intake: IV 1045 Sodium Chloride 0.9% 1,000 ml @ 980 50 mls/hr IV .Q20H [facility] Rx#: [id number] Oral 840 300 Output: Void Amount 270 750 550 Other: Meal Nourishment/Supplement Percent of Meal Consumed 100% Feeding Ability Independent Urine Appearance Clear Clear Clear Urine Color Bright Yellow Bright Yellow Bright Yellow Urine Odor Normal Normal OBJ DATA Labs CBC & Chem 7: 07/16/20 05:10 07/16/20 05:10 Labs: Abnormal Lab Results 07/16/20 07/16/20 07/15/20 05:10 05:10 04:50 WBC MPV 10.5 H Carbon Dioxide 21 L 21 L Glucose 152 H 208 H Calcium 8.4 L GGT 148 H 160 H AST 114 H 88 H ALT 171 H 122 H Alkaline Phosphatase Lactate Dehydrogenase 269 H Total Protein 5.7 L Albumin 3.0 L 07/15/20 07/14/20 04:50 15:34 WBC 4.3 L MPV Carbon Dioxide 21 L Glucose 108 H Calcium GGT AST 56 H ALT 109 H Alkaline Phosphatase 118 H Lactate Dehydrogenase Total Protein Albumin Meds: Medications Acetaminophen (Tylenol) 650 mg PO Q4-6HP PRN; Protocol PRN Reason: Per Pain Protocol/Fever > 101 Last Admin: 07/15/20 04:29 Dose: 650 mg Documented by: Albuterol Sulfate (Ventolin) 2 puff INH Q4HP PRN PRN Reason: shortness of breath or wheezin Albuterol/Ipratropium (Duoneb) 3 ml NEB QIDP PRN PRN Reason: Wheezing Bisacodyl (Dulcolax) 10 mg IN Q2-3DAYS PRN PRN Reason: Constipation Clonazepam (Klonopin) 1 mg PO Q8H PRN PRN Reason: Anxiety Last Admin: 07/15/20 09:41 Dose: 1 mg Documented by: Dexamethasone (Decadron) 6 mg PO DAILY [facility] Last Admin: 07/16/20 09:49 Dose: 6 mg Documented by: Diphenhydramine HCl (Bendadryl) 12.5 mg PO Q8HP PRN PRN Reason: Allergic Reaction Docusate Sodium (Colace) 100 mg PO BID [facility] Last Admin: 07/16/20 09:50 Dose: Not Given Documented by: Fluticasone Propionate (Flovent Hfa 220mcg) 2 puff INH BID [facility] Last Admin: 07/16/20 09:49 Dose: 2 puff Documented by: Heparin Sodium (Porcine) (Heparin) 5,000 unit SQ Q12 [facility] Last Admin: 07/16/20 09:49 Dose: 5,000 unit Documented by: Hydralazine HCl (Apresoline) 10 mg IV Q4-6HP PRN PRN Reason: Hypertension Hydroxyzine HCl (Atarax) 25 mg PO BID [facility] Last Admin: 07/16/20 09:49 Dose: 25 mg Documented by: Potassium Chloride 40 meq/ (Dextrose) 520 mls @ 130 mls/hr IV UD PRN PRN Reason: K+ = or < 3.5 Magnesium Sulfate (Magnesium Sulfate) 2 gm in 50 mls @ 50 mls/hr IV UD PRN PRN Reason: MG = or < 1.7 Sodium Chloride (Sodium Chloride 0.9%) 1,000 mls @ 50 mls/hr IV .Q20H [facility] Stop: 07/17/20 08:51 Last Admin: 07/15/20 17:13 Dose: 50 mls/hr Documented by: Acetaminophen (Ofirmev) 650 mg in 65 mls @ 130 mls/hr IV Q6HP PRN; Protocol PRN Reason: Per Pain Protocol/Fever > 101 Last Infusion: 07/15/20 16:08 Dose: Infused Documented by: REMDESIVIR 100 mg/ Sodium (Chloride) 250 mls @ 500 mls/hr IV Q24H [facility] Stop: 07/18/20 09:29 Last Admin: 07/16/20 09:50 Dose: 500 mls/hr Documented by: Iron Carb/Multivit/[place]/Folic Acid (Multivitamin W/Minerals) 1 tab PO DAILY [facility] Last Admin: 07/16/20 09:49 Dose: 1 tab Documented by: Levothyroxine Sodium (Synthroid) 125 mcg PO QAMAC [facility] Last Admin: 07/16/20 08:00 Dose: 125 mcg Documented by: Metoprolol Succinate (Toprol Xl) 25 mg PO QDAY [facility] Last Admin: 07/16/20 09:49 Dose: 25 mg Documented by: Metoprolol Tartrate (Lopressor) 5 mg IV Q5M PRN PRN Reason: Heart Rate > 140 bpm Montelukast Sodium (Singular) 10 mg PO QDAY [facility] Last Admin: 07/16/20 09:49 Dose: 10 mg Documented by: Ondansetron HCl (Zofran Odt) 4 mg SL Q4-6HP PRN; Protocol PRN Reason: Nausea And Vomiting Ondansetron HCl (Zofran) 4 mg IV Q4-6HP PRN; Protocol PRN Reason: Nausea And Vomiting Polyethylene Glycol (Miralax) 17 gm PO DAILYP PRN PRN Reason: Constipation Potassium Chloride (Klor-Con) 40 meq PO DAILYP PRN PRN Reason: K+ < 3.5 Promethazine HCl (Phenergan) 12.5 mg PO Q6-8HP PRN PRN Reason: Nausea Last Admin: 07/15/20 20:42 Dose: 12.5 mg Documented by: Fluticasone/Salmeterol (Advair 500-50 Diskus) 1 puff INH BID [facility] Last Admin: 07/16/20 09:48 Dose: 1 puff Documented by: Senna/Docusate Sodium (Senna Plus Tablet) 1 tab PO HS [facility] Last Admin: 07/15/20 20:07 Dose: Not Given Documented by: Sodium Chloride (Saline Flush) 10 ml IV Q8 [facility] Last Admin: 07/16/20 04:58 Dose: Not Given Documented by: Tramadol HCl (Ultram) 50 mg PO Q6-8HP PRN; Protocol PRN Reason: Pain Last Admin: 07/16/20 10:10 Dose: 50 mg Documented by: A/P Narrative A/P Narrative: * Acute hypoxic respiratory failure-continue supplemental oxygen and wean as tolerated. Repeat interval chest imaging in 24 hours. * COVID-19 pneumonia-extensive bilateral infiltrates on chest imaging. Continue Remdesivir/dexamethasone. Uptrending LFTs but within 4 times normal limits * History of reactive airway disease continue bronchodilators * Hypertension continue metoprolol * Hypothyroidism continue oxygen * Prophylaxis heparin Plan * Continue COVID-19 precautions * Continue antiviral/dexamethasone * Serial chest imaging * Pre-existing medical condition management on home medications * Nutrition support Time Spent With Patient Time: Total time spent is greater than 50% in coordination of care (as documented) at patient's floor/unit and/or counseling patient:
[2020-07-16] MEDS: 0.9 % SODIUM CHLORIDE 1,000 ML IV SCH (12:00)
[2020-07-16] MEDS: SENNOSIDES/DOCUSATE SODIUM 1 TAB TABLET PO SCH (20:24)
[2020-07-17] MEDS: 0.9 % SODIUM CHLORIDE 10 ML SYRINGE IV SCH ×3 (05:10→23:39)
[2020-07-17 06:22] LABS: Hematocrit 35.4 % (34.1-44.9); Hemoglobin 11.8 g/dL (11.2-15.7); Mean Cell Volume 89.8 fL (80.0-100.0); Mean Corpuscular HGB Conc 33.3 g/dL (31.0-36.0); Mean Platelet Volume 10.4 fL (7.4-10.4); Platelet Count 170 K/mcL (140-440); RBC 3.94 M/mcL (3.59-5.38); Red Cell Distribution Width 12.7 % (11.5-14.5); WBC 7.7 K/mcL (4.50-11.00)
[2020-07-17 06:46] LABS: ALT/SGPT 133 U/l (0-40); AST/SGOT 52 U/l (0-37); Albumin 3.3 gm/dL (3.2-5.2); Albumin/Globulin Ratio 1.3 (1.0-2.3); Alkaline Phosphatase 95 U/L (39-117); Bilirubin,Direct < 0.2 mg/dL (0.0-0.3); Bilirubin,Total 0.3 mg/dL (0.0-1.0); Blood Urea Nitrogen 14 mg/dl (6-20); Calcium 8.4 mg/dl (8.6-10.4); Carbon Dioxide 24 mmol/L (22-30); Chloride 105 mmol/L (96-108); Globulin 2.5 gm/dL (2.2-3.7); Glomerular Filtration Rate 97; Glucose 135 mg/dL (70-105); Lactate Dehydrogenase 214 U/L (94-250); Phosphorous 3.7 mg/dL (2.7-4.5); Triglycerides 84 mg/dl (<150); Uric Acid 2.9 mg/dL (2.5-8.0)
[2020-07-17] MEDS: LEVOTHYROXINE 125 MCG TABLET PO SCH (06:53)
[2020-07-17 08:10] LABS: Lymphocytes % 21 % (15-49); Monocytes % (Manual) 6 % (1-12); Platelet Estimate NORMAL (NORMAL); RBC Morphology NORMAL (NORMAL); Segmented Neutrophils % 73 % (38-78)
[2020-07-17] MEDS: MULTIVIT,THER IRON,CA,FA & MIN 1 TABLET PO SCH (09:10)
[2020-07-17] MEDS: REMDESIVIR 100 MG in 0.9 % SODIUM CHLORIDE 250 ML IV SCH (09:10)
[2020-07-17] MEDS: DEXAMETHASONE 4 MG TABLET PO SCH (09:10)
[2020-07-17] MEDS: FLUTICASONE/SALMETEROL 500/50 INHALER #14 INH SCH ×2 (09:10→23:37)
[2020-07-17] MEDS: DOCUSATE SODIUM 100 MG CAPSULE PO SCH ×2 (09:10→23:38)
[2020-07-17] MEDS: METOPROLOL SUCCINATE 25 MG TAB.XL.24H PO SCH (09:10)
[2020-07-17] MEDS: hydrOXYzine 25 MG TABLET PO SCH ×2 (09:10→23:36)
[2020-07-17] MEDS: HEPARIN 5,000 UNIT/ML VIAL SQ SCH ×2 (09:10→23:37)
[2020-07-17] MEDS: FLUTICASONE HFA 220MCG INHALER INH SCH ×2 (09:10→23:38)
[2020-07-17] MEDS: MONTELUKAST 10 MG TABLET PO SCH (09:10)
--- NOTE | 2020-07-17 10:06 | Internal Med Progress Note ---
SUBJECTIVE Subjective Patient information: Note initiated : 07/17/20 at 10:03 am Service Date, if different from initiated Date: [] Patient: Kristen Mckeon a 54 y/o F admitted on 07/14/20 for shortness of breath. Chief Complaint: History of present illness: Ms. Mckeon is a 54 year old F with a history of asthma/hypothyroidism/hypertension who works at [employer]. Patient has been experiencing things of low-grade fever weakness and malaise and has been tested for COVID last Monday and subsequently on which came back positive. Since then patient has self quarantined at home but has noticed worsening of her shortness of breath/weakness. She presents today to the ER significantly hypoxic in low 80s requiring 2 L oxygen to achieve saturation to 92%. Chest imaging consistent with bilateral infiltrates/COVID pneumonia. Patient was started on antiviral loading dose/dexamethasone after discussion of risks and benefits. Subsequently hospitalist service was consulted. At the time of my evaluation patient is alert and oriented. She is able to answer most of the questions. She endorses to exposure to sick contacts including multiple residents at [facility] with COVID positive. Denies loss of smell but endorses lack of appetite. Denies diarrhea, dysuria, headache, photophobia or chest palpitation. 07/15-patient currently stable continuing on dexamethasone/remdesivir treatment. White count 4.3 LFTs gradually up trending but within 3 times upper normal limit. Continue monitoring. Interval chest imaging worsening bilateral pneumonia. Currently on 1.5 L oxygen. 07/16-patient feels weak and lethargic however currently on 1.5 L oxygen. No overnight events including fever chills. White count 8.5. Repeat chest imaging in a.m.LFTs gradually up trending with ALT 171 AST 114. On antiviral treatment. No additional concerns per nursing staff. Maintaining COVID-19 precautions 07/17-patient doing well. Now on 1 L oxygen. On day 4 of antiviral treatment. LFTs downtrending. Patient clinically feels better. Chest imaging minimally improved. Discussed options of discharge in the next 48 hours on home oxygen with continued c self-isolation and dexamethasone. Transfer to medical floor today. Constitutional Vitals: Vital Signs Temp Pulse Resp BP Pulse Ox 97.3 F 59 L 17 154/89 93 07/17/20 08:01 07/17/20 08:01 07/17/20 08:01 07/17/20 08:01 07/17/20 08:01 Period Temp Pulse Resp BP Sys/Lazo Pulse Ox Last 24 Hr 96.5 F-98.0 F 59-78 10-24 130-154/76-89 91-96 Intake and Output 07/16/20 07/17/20 07/17/20 21:59 05:59 13:59 Intake Total 570 220 Output Total 725 750 Balance -155 -530 Weight 85.417 kg On 1 L oxygen Nonlabored breathing Minimal anxiety No lymphedema No telemetry events Intake & Output: Intake & Output 07/16/20 07/17/20 07/17/20 21:59 05:59 13:59 Intake Total 570 220 Output Total 725 750 Balance -155 -530 Weight 85.417 kg Intake: Oral 570 220 Output: Void Amount 725 750 Other: Meal Dinner Percent of Meal Consumed 50% Feeding Ability Assist with Tray Set Up Urine Appearance Clear Clear Urine Color Bright Yellow Bright Yellow Urine Odor Normal Normal OBJ DATA Labs CBC & Chem 7: 07/17/20 05:25 07/17/20 05:25 Labs: Abnormal Lab Results 07/17/20 07/16/20 07/16/20 05:25 05:10 05:10 WBC MPV 10.5 H Carbon Dioxide 21 L Glucose 135 H 152 H Calcium 8.4 L 8.4 L GGT 146 H 148 H AST 52 H 114 H ALT 133 H 171 H Alkaline Phosphatase Lactate Dehydrogenase Total Protein 5.8 L 5.7 L Albumin 3.0 L 07/15/20 07/15/20 07/14/20 04:50 04:50 15:34 WBC 4.3 L MPV Carbon Dioxide 21 L 21 L Glucose 208 H 108 H Calcium GGT 160 H AST 88 H 56 H ALT 122 H 109 H Alkaline Phosphatase 118 H Lactate Dehydrogenase 269 H Total Protein Albumin Meds: Medications Acetaminophen (Tylenol) 650 mg PO Q4-6HP PRN; Protocol PRN Reason: Per Pain Protocol/Fever > 101 Last Admin: 07/15/20 04:29 Dose: 650 mg Documented by: Albuterol Sulfate (Ventolin) 2 puff INH Q4HP PRN PRN Reason: shortness of breath or wheezin Albuterol/Ipratropium (Duoneb) 3 ml NEB QIDP PRN PRN Reason: Wheezing Bisacodyl (Dulcolax) 10 mg [place] Q2-3DAYS PRN PRN Reason: Constipation Clonazepam (Klonopin) 1 mg PO Q8H PRN PRN Reason: Anxiety Last Admin: 07/15/20 09:41 Dose: 1 mg Documented by: Dexamethasone (Decadron) 6 mg PO DAILY [facility] Last Admin: 07/17/20 09:10 Dose: 6 mg Documented by: Diphenhydramine HCl (Bendadryl) 12.5 mg PO Q8HP PRN PRN Reason: Allergic Reaction Docusate Sodium (Colace) 100 mg PO BID [facility] Last Admin: 07/17/20 09:10 Dose: 100 mg Documented by: Fluticasone Propionate (Flovent Hfa 220mcg) 2 puff INH BID [facility] Last Admin: 07/17/20 09:10 Dose: 2 puff Documented by: Heparin Sodium (Porcine) (Heparin) 5,000 unit SQ Q12 [facility] Last Admin: 07/17/20 09:10 Dose: 5,000 unit Documented by: Hydralazine HCl (Apresoline) 10 mg IV Q4-6HP PRN PRN Reason: Hypertension Hydroxyzine HCl (Atarax) 25 mg PO BID [facility] Last Admin: 07/17/20 09:10 Dose: 25 mg Documented by: Potassium Chloride 40 meq/ (Dextrose) 520 mls @ 130 mls/hr IV UD PRN PRN Reason: K+ = or < 3.5 Magnesium Sulfate (Magnesium Sulfate) 2 gm in 50 mls @ 50 mls/hr IV UD PRN PRN Reason: MG = or < 1.7 Acetaminophen (Ofirmev) 650 mg in 65 mls @ 130 mls/hr IV Q6HP PRN; Protocol PRN Reason: Per Pain Protocol/Fever > 101 Last Infusion: 07/15/20 16:08 Dose: Infused Documented by: REMDESIVIR 100 mg/ Sodium (Chloride) 250 mls @ 500 mls/hr IV Q24H [facility] Stop: 07/17/20 12:00 Last Infusion: 07/16/20 10:45 Dose: Infused Documented by: REMDESIVIR 100 mg/ Sodium (Chloride) 250 mls @ 500 mls/hr IV Q24H [facility] Stop: 07/18/20 09:29 Iron Carb/Multivit/[employer]/Folic Acid (Multivitamin W/Minerals) 1 tab PO DAILY [facility] Last Admin: 07/17/20 09:10 Dose: 1 tab Documented by: Levothyroxine Sodium (Synthroid) 125 mcg PO QAMAC [facility] Last Admin: 07/17/20 06:53 Dose: 125 mcg Documented by: Metoprolol Succinate (Toprol Xl) 25 mg PO QDAY [facility] Last Admin: 07/17/20 09:10 Dose: 25 mg Documented by: Metoprolol Tartrate (Lopressor) 5 mg IV Q5M PRN PRN Reason: Heart Rate > 140 bpm Montelukast Sodium (Singular) 10 mg PO QDAY [facility] Last Admin: 07/17/20 09:10 Dose: 10 mg Documented by: Ondansetron HCl (Zofran Odt) 4 mg SL Q4-6HP PRN; Protocol PRN Reason: Nausea And Vomiting Ondansetron HCl (Zofran) 4 mg IV Q4-6HP PRN; Protocol PRN Reason: Nausea And Vomiting Polyethylene Glycol (Miralax) 17 gm PO DAILYP PRN PRN Reason: Constipation Potassium Chloride (Klor-Con) 40 meq PO DAILYP PRN PRN Reason: K+ < 3.5 Promethazine HCl (Phenergan) 12.5 mg PO Q6-8HP PRN PRN Reason: Nausea Last Admin: 07/15/20 20:42 Dose: 12.5 mg Documented by: Fluticasone/Salmeterol (Advair 500-50 Diskus) 1 puff INH BID [facility] Last Admin: 07/17/20 09:10 Dose: 1 puff Documented by: Senna/Docusate Sodium (Senna Plus Tablet) 1 tab PO HS [facility] Last Admin: 07/16/20 20:24 Dose: Not Given Documented by: Sodium Chloride (Saline Flush) 10 ml IV Q8 [facility] Last Admin: 07/17/20 05:10 Dose: Not Given Documented by: Tramadol HCl (Ultram) 50 mg PO Q6-8HP PRN; Protocol PRN Reason: Pain Last Admin: 07/16/20 20:07 Dose: 50 mg Documented by: A/P Narrative A/P Narrative: * Acute hypoxic respiratory failure-clinically stable now on 1 L oxygen. Interval chest imaging minimal improvement noted. However clinically feeling better. * COVID-19 pneumonia-extensive bilateral infiltrates on chest imaging. No significant changes since previous imaging. Continue Remdesivir/dexamethasone. LFTs improving * History of reactive airway disease continue bronchodilators * Hypertension continue metoprolol * Hypothyroidism continue oxygen * Prophylaxis heparin Plan * Continue COVID-19 precautions * Continue antiviral/dexamethasone * Transfer to medical floor * Pre-existing medical condition management on home medications * Nutrition support * Consider discharge in 48 hours post remdesivir treatment on home oxygen if clinically improving Time Spent With Patient Time: Total time spent is greater than 50% in coordination of care (as documented) at patient's floor/unit and/or counseling patient:
[2020-07-17] MEDS: ACETAMINOPHEN 325 MG TABLET PO PRN (10:08)
[2020-07-17] MEDS ORDERED: IPRATROPIUM/ALBUTEROL 3 ML AMPUL.NEB NEB PRN (10:09)
[2020-07-17] MEDS ORDERED: PROMETHAZINE 25 MG TABLET PO PRN (10:09)
[2020-07-17] MEDS ORDERED: ACETAMINOPHEN 650 MG/65 ML BOTTLE IV PRN (10:09)
[2020-07-17] MEDS ORDERED: MAGNESIUM SULFATE 2 GM/50 ML BAG IV PRN (10:09)
[2020-07-17] MEDS ORDERED: POLYETHYLENE GLYCOL 3350 17 GM PACKET PO PRN (10:09)
[2020-07-17] MEDS ORDERED: POTASSIUM CHLORIDE 40 MEQ in DEXTROSE 5% IN WATER 500 ML IV PRN (10:09)
[2020-07-17] MEDS ORDERED: hydrALAZINE 20 MG/ML VIAL IV PRN (10:09)
[2020-07-17] MEDS ORDERED: POTASSIUM CHLORIDE 20 MEQ PACKET PO PRN (10:09)
[2020-07-17] MEDS ORDERED: ONDANSETRON 4 MG/2 ML VIAL IV PRN (10:09)
[2020-07-17] MEDS ORDERED: ALBUTEROL SULFATE 200 PUFF INHALER INH PRN (10:09)
[2020-07-17] MEDS ORDERED: ONDANSETRON 4 MG ODT TABLET SL PRN (10:09)
[2020-07-17] MEDS ORDERED: ACETAMINOPHEN 325 MG TABLET PO PRN (10:09)
[2020-07-17] MEDS ORDERED: diphenhydrAMINE 12.5 MG/5 ML ORAL.SOL PO PRN (10:09)
[2020-07-17] MEDS ORDERED: METOPROLOL TARTRATE 5 MG/5 ML VIAL IV PRN (10:09)
[2020-07-17] MEDS ORDERED: BISACODYL 10 MG SUPP.RECT PR PRN (10:09)
--- NOTE | 2020-07-17 10:48 | XRay Report ---
HISTORY: Follow-up bilateral pneumonia FINDINGS: There are mild bilateral infiltrates in both lungs with the greatest involvement in the left lower lobe. There has been mild improvement bilaterally since 07/15/20. The heart size is normal. No pleural effusion is detected. IMPRESSION: Mild improvement of bilateral pneumonia Interpreted and Authenticated by: Jaime Evans 07/17/20
[2020-07-17] MEDS: clonazePAM 1 MG TABLET PO PRN ×2 (16:53→23:42)
[2020-07-17] MEDS: guaiFENesin 600 MG TAB.SR.12H PO PRN (23:35)
[2020-07-17] MEDS: traMADol 50 MG TABLET PO PRN (23:36)
[2020-07-17] MEDS: SENNOSIDES/DOCUSATE SODIUM 1 TAB TABLET PO SCH (23:39)
[2020-07-18] MEDS: 0.9 % SODIUM CHLORIDE 10 ML SYRINGE IV SCH ×3 (04:24→21:16)
[2020-07-18] MEDS: LEVOTHYROXINE 125 MCG TABLET PO SCH (06:59)
[2020-07-18] MEDS: METOPROLOL SUCCINATE 25 MG TAB.XL.24H PO SCH (08:44)
[2020-07-18] MEDS: hydrOXYzine 25 MG TABLET PO SCH ×2 (08:44→21:15)
[2020-07-18] MEDS: MULTIVIT,THER IRON,CA,FA & MIN 1 TABLET PO SCH (08:44)
[2020-07-18] MEDS: DEXAMETHASONE 4 MG TABLET PO SCH (08:44)
[2020-07-18] MEDS: MONTELUKAST 10 MG TABLET PO SCH (08:44)
[2020-07-18] MEDS: HEPARIN 5,000 UNIT/ML VIAL SQ SCH ×2 (08:45→21:13)
[2020-07-18] MEDS: DOCUSATE SODIUM 100 MG CAPSULE PO SCH ×2 (08:45→21:14)
[2020-07-18] MEDS: FLUTICASONE/SALMETEROL 500/50 INHALER #14 INH SCH ×2 (08:49→21:15)
[2020-07-18] MEDS: FLUTICASONE HFA 220MCG INHALER INH SCH ×2 (08:50→21:15)
[2020-07-18 08:56] LABS: Hematocrit 36.3 % (34.1-44.9); Hemoglobin 12.2 g/dL (11.2-15.7); Mean Cell Volume 87.5 fL (80.0-100.0); Mean Corpuscular HGB Conc 33.6 g/dL (31.0-36.0); Mean Platelet Volume 10.2 fL (7.4-10.4); Platelet Count 203 K/mcL (140-440); RBC 4.15 M/mcL (3.59-5.38); Red Cell Distribution Width 12.4 % (11.5-14.5); WBC 8.5 K/mcL (4.50-11.00)
[2020-07-18] MEDS ORDERED: REMDESIVIR 100 MG in 0.9 % SODIUM CHLORIDE 250 ML IV SCH ×3 (09:00)
[2020-07-18 09:18] LABS: ALT/SGPT 103 U/l (0-40); AST/SGOT 29 U/l (0-37); Albumin 3.3 gm/dL (3.2-5.2); Albumin/Globulin Ratio 1.2 (1.0-2.3); Alkaline Phosphatase 94 U/L (39-117); Bilirubin,Direct < 0.2 mg/dL (0.0-0.3); Bilirubin,Total 0.4 mg/dL (0.0-1.0); Blood Urea Nitrogen 18 mg/dl (6-20); Calcium 8.8 mg/dl (8.6-10.4); Carbon Dioxide 24 mmol/L (22-30); Chloride 103 mmol/L (96-108); Globulin 2.8 gm/dL (2.2-3.7); Glomerular Filtration Rate 97; Glucose 113 mg/dL (70-105); Lactate Dehydrogenase 253 U/L (94-250); Phosphorous 4.1 mg/dL (2.7-4.5); Triglycerides 110 mg/dl (<150); Uric Acid 3.3 mg/dL (2.5-8.0)
[2020-07-18 11:40] LABS: Band Neutrophils % 1 % (0-10); Lymphocytes % 17 % (15-49); Monocytes % (Manual) 8 % (1-12); Platelet Estimate NORMAL (NORMAL); RBC Morphology NORMAL (NORMAL); Segmented Neutrophils % 74 % (38-78)
--- NOTE | 2020-07-18 18:38 | Internal Med Progress Note ---
SUBJECTIVE Subjective Patient information: Note initiated : 07/18/20 at 6:31 pm Service Date, if different from initiated Date: [] Patient: Kristen Mckeon a 54 y/o F admitted on 07/14/20 for shortness of breath. Chief Complaint: [] Ms. Mckeon is a 54 year old F with a history of asthma/hypothyroidis m/hypertension who works at [employer]. Patient has been experiencing things of low-grade fever weakness and malaise and has been tested for COVID last Monday and subsequently on which came back positive. Since then patient has self quarantined at home but has noticed worsening of her shortness of breath/weakness. She presents today to the ER significantly hypoxic in low 80s requiring 2 L oxygen to achieve saturation to 92%. Chest imaging consistent with bilateral infiltrates/COVID pneumonia. Patient was started on antiviral loading dose/dexamethasone after discussion of risks and benefits. Subsequently hospitalist service was consulted. At the time of my evaluation patient is alert and oriented. She is able to answer most of the questions. She endorses to exposure to sick contacts including multiple residents at [facility] with COVID positive. Denies loss of smell but endorses lack of appetite. Denies diarrhea, dysuria, headache, photophobia or chest palpitation. 07/15-patient currently stable continuing on dexamethasone/remdesivir treatment. White count 4.3 LFTs gradually up trending but within 3 times upper normal limit. Continue monitoring. Interval chest imaging worsening bilateral pneumonia. Currently on 1.5 L oxygen. 07/16-patient feels weak and lethargic however currently on 1.5 L oxygen. No overnight events including fever chills. White count 8.5. Repeat chest imaging in a.m.LFTs gradually up trending with ALT 171 AST 114. On antiviral t reatment. No additional concerns per nursing staff. Maintaining COVID-19 precautions 07/17-patient doing well. Now on 1 L oxygen. On day 4 of antiviral treatment. LFTs downtrending. Patient clinically feels better. Chest imaging minimally improved. Discussed options of discharge in the next 48 hours on home oxygen with continued c self-isolation and dexamethasone. Transfer to medical floor today. 07/18 Patient still has mild shortness of breath but generally speaking patient feels better. Denies nausea, vomiting, fever, or chills. Patient is on 0.5 to 1 L Today patient completed 5-day course of remdesivir ROS: Positive for shortness of breath. Other systems were reviewed and negative. Constitutional Vitals: Vital Signs Temp Pulse Resp BP Pulse Ox 98.4 F 70 16 130/76 93 07/18/20 16:00 07/18/20 16:00 07/18/20 16:00 07/18/20 16:00 07/18/20 16:00 Period Temp Pulse Resp BP Sys/Lazo Pulse Ox Last 24 Hr 97.9 F-98.7 F 70-78 16-22 120-138/65-78 92-94 Intake and Output 07/18/20 07/18/20 07/18/20 05:59 13:59 21:59 Intake Total 600 800 Output Total 1200 Balance -600 800 Intake & Output: Intake & Output 07/18/20 07/18/20 07/18/20 05:59 13:59 21:59 Intake Total 600 800 Output Total 1200 Balance -600 800 Intake: Oral 600 800 Output: Void Amount 1200 Other: Meal Lunch Percent of Meal Consumed 75% Nourishment/Supplement name yogurt, string cheese Urine Appearance Clear Clear Urine Color Bright Yellow Straw Urine Odor Normal Normal # Voids 4 Additional findings Additional findings: General -no acute distress Eyes - PERRLA, EOM intact ENT no rhinorrhea, no noticeable or palpable swelling, no redness or rash around throat or on face Neck supple, no JVD, no thyromegaly Respiratory: Lungs -coarse breathing sounds, no use of accessory muscles. Cardiovascular - RRR no m/r/g, GI - Normal bowel sounds, no distended, soft. Extremeties - No edema, cyanosis or clubbing Hemo/lymphatic/immune no lymphadenopathy Neurological Alert and oriented x 3, no focal neurologic deficits. Psychiatry flat affect OBJ DATA Labs CBC & Chem 7: 07/18/20 06:10 07/18/20 06:10 Labs: Abnormal Lab Results 07/18/20 07/17/20 07/16/20 06:10 05:25 05:10 MPV Carbon Dioxide 21 L Glucose 113 H 135 H 152 H Calcium 8.4 L 8.4 L GGT 145 H 146 H 148 H AST 52 H 114 H ALT 103 H 133 H 171 H Lactate Dehydrogenase 253 H Total Protein 5.8 L 5.7 L Albumin 3.0 L 07/16/20 05:10 MPV 10.5 H Carbon Dioxide Glucose Calcium GGT AST ALT Lactate Dehydrogenase Total Protein Albumin Meds: Medications Acetaminophen (Tylenol) 650 mg PO Q4-6HP PRN; Protocol PRN Reason: Per Pain Protocol/Fever > 101 Albuterol Sulfate (Ventolin) 2 puff INH Q4HP PRN PRN Reason: shortness of breath or wheezin Albuterol/Ipratropium (Duoneb) 3 ml NEB QIDP PRN PRN Reason: Wheezing Bisacodyl (Dulcolax) 10 mg WV Q2-3DAYS PRN PRN Reason: Constipation Clonazepam (Klonopin) 1 mg PO Q8H PRN PRN Reason: Anxiety Last Admin: 07/17/20 23:42 Dose: 1 mg Documented by: Dexamethasone (Decadron) 6 mg PO DAILY [facility] Last Admin: 07/18/20 08:44 Dose: 6 mg Documented by: Diphenhydramine HCl (Bendadryl) 12.5 mg PO Q8HP PRN PRN Reason: Allergic Reaction Docusate Sodium (Colace) 100 mg PO BID [facility] Last Admin: 07/18/20 08:45 Dose: 100 mg Documented by: Fluticasone Propionate (Flovent Hfa 220mcg) 2 puff INH BID [facility] Last Admin: 07/18/20 08:50 Dose: 2 puff Documented by: Guaifenesin (Mucinex) 600 mg PO Q12HP PRN PRN Reason: Congestion Last Admin: 07/17/20 23:35 Dose: 600 mg Documented by: Heparin Sodium (Porcine) (Heparin) 5,000 unit SQ Q12 [facility] Last Admin: 07/18/20 08:45 Dose: 5,000 unit Documented by: Hydralazine HCl (Apresoline) 10 mg IV Q4-6HP PRN PRN Reason: Hypertension Hydroxyzine HCl (Atarax) 25 mg PO BID [facility] Last Admin: 07/18/20 08:44 Dose: 25 mg Documented by: Magnesium Sulfate (Magnesium Sulfate) 2 gm in 50 mls @ 50 mls/hr IV UD PRN PRN Reason: MG = or < 1.7 Potassium Chloride 40 meq/ (Dextrose) 520 mls @ 130 mls/hr IV UD PRN PRN Reason: K+ = or < 3.5 Acetaminophen (Ofirmev) 650 mg in 65 mls @ 130 mls/hr IV Q6HP PRN; Protocol PRN Reason: Per Pain Protocol/Fever > 101 Iron Carb/Multivit/[place]/Folic Acid (Multivitamin W/Minerals) 1 tab PO DAILY [facility] Last Admin: 07/18/20 08:44 Dose: 1 tab Documented by: Levothyroxine Sodium (Synthroid) 125 mcg PO QAMAC [facility] Last Admin: 07/18/20 06:59 Dose: 125 mcg Documented by: Metoprolol Succinate (Toprol Xl) 25 mg PO QDAY [facility] Last Admin: 07/18/20 08:44 Dose: 25 mg Documented by: Metoprolol Tartrate (Lopressor) 5 mg IV Q5M PRN PRN Reason: Heart Rate > 140 bpm Montelukast Sodium (Singular) 10 mg PO QDAY [facility] Last Admin: 07/18/20 08:44 Dose: 10 mg Documented by: Ondansetron HCl (Zofran Odt) 4 mg SL Q4-6HP PRN; Protocol PRN Reason: Nausea And Vomiting Ondansetron HCl (Zofran) 4 mg IV Q4-6HP PRN; Protocol PRN Reason: Nausea And Vomiting Polyethylene Glycol (Miralax) 17 gm PO DAILYP PRN PRN Reason: Constipation Potassium Chloride (Klor-Con) 40 meq PO DAILYP PRN PRN Reason: K+ < 3.5 Promethazine HCl (Phenergan) 12.5 mg PO Q6-8HP PRN PRN Reason: Nausea Fluticasone/Salmeterol (Advair 500-50 Diskus) 1 puff INH BID [facility] Last Admin: 07/18/20 08:49 Dose: 1 puff Documented by: Senna/Docusate Sodium (Senna Plus Tablet) 1 tab PO HS [facility] Last Admin: 07/17/20 23:39 Dose: Not Given Documented by: Sodium Chloride (Saline Flush) 10 ml IV Q8 [facility] Last Admin: 07/18/20 12:58 Dose: 10 ml Documented by: Tramadol HCl (Ultram) 50 mg PO Q6-8HP PRN; Protocol PRN Reason: Pain Last Admin: 07/17/20 23:36 Dose: 50 mg Documented by: A/P Narrative A/P Narrative: 1. Acute hypoxic respiratory failure-clinically stable now on 0.5-1 L oxygen. Interval chest imaging minimal improvement noted. However clinically feeling better. 2. COVID-19 pneumonia-extensive bilateral infiltrates on chest imaging. No significant changes since previous imaging. She has completed 5-day course of Remdesivir on 07/18. Continue dexamethasone. LFTs improving 3. History of reactive airway disease continue bronchodilators 4. Hypertension continue metoprolol 5. Hypothyroidism continue oxygen 6. Prophylaxis heparin Plan Continue COVID-19 precautions Continue dexamethasone Pre-existing medical condition management on home medications Nutrition support Consider discharge in 48 hours post remdesivir treatment on home oxygen if clinically improving Time Spent With Patient Time: Total time spent is greater than 50% in coordination of care (as documented) at patient's floor/unit and/or counseling patient:
[2020-07-18] MEDS: traMADol 50 MG TABLET PO PRN (21:14)
[2020-07-18] MEDS: guaiFENesin 600 MG TAB.SR.12H PO PRN (21:14)
[2020-07-18] MEDS: clonazePAM 1 MG TABLET PO PRN (21:15)
[2020-07-18] MEDS: SENNOSIDES/DOCUSATE SODIUM 1 TAB TABLET PO SCH (21:15)
[2020-07-19] MEDS: traMADol 50 MG TABLET PO PRN (04:22)
[2020-07-19] MEDS: guaiFENesin 600 MG TAB.SR.12H PO PRN (04:22)
[2020-07-19] MEDS: 0.9 % SODIUM CHLORIDE 10 ML SYRINGE IV SCH (04:22)
[2020-07-19] MEDS: LEVOTHYROXINE 125 MCG TABLET PO SCH (07:32)
[2020-07-19 08:27] LABS: ALT/SGPT 79 U/l (0-40); AST/SGOT 22 U/l (0-37); Albumin 3.4 gm/dL (3.2-5.2); Albumin/Globulin Ratio 1.3 (1.0-2.3); Alkaline Phosphatase 87 U/L (39-117); Bilirubin,Direct < 0.2 mg/dL (0.0-0.3); Bilirubin,Total 0.5 mg/dL (0.0-1.0); Blood Urea Nitrogen 17 mg/dl (6-20); Calcium 8.3 mg/dl (8.6-10.4); Carbon Dioxide 23 mmol/L (22-30); Chloride 102 mmol/L (96-108); Globulin 2.7 gm/dL (2.2-3.7); Glomerular Filtration Rate 97; Glucose 112 mg/dL (70-105); Hematocrit 38.3 % (34.1-44.9); Hemoglobin 12.7 g/dL (11.2-15.7); Lactate Dehydrogenase 225 U/L (94-250); Mean Cell Volume 90.3 fL (80.0-100.0); Mean Corpuscular HGB Conc 33.2 g/dL (31.0-36.0); Mean Platelet Volume 10.3 fL (7.4-10.4); Phosphorous 3.9 mg/dL (2.7-4.5); Platelet Count 214 K/mcL (140-440); RBC 4.24 M/mcL (3.59-5.38); Red Cell Distribution Width 12.7 % (11.5-14.5); Triglycerides 108 mg/dl (<150); Uric Acid 3.1 mg/dL (2.5-8.0); WBC 10.3 K/mcL (4.50-11.00)
[2020-07-19] MEDS: FLUTICASONE/SALMETEROL 500/50 INHALER #14 INH SCH (09:15)
[2020-07-19] MEDS: DEXAMETHASONE 4 MG TABLET PO SCH (09:15)
[2020-07-19] MEDS: DOCUSATE SODIUM 100 MG CAPSULE PO SCH (09:15)
[2020-07-19] MEDS: METOPROLOL SUCCINATE 25 MG TAB.XL.24H PO SCH (09:15)
[2020-07-19] MEDS: HEPARIN 5,000 UNIT/ML VIAL SQ SCH (09:16)
[2020-07-19] MEDS: MONTELUKAST 10 MG TABLET PO SCH (09:16)
[2020-07-19] MEDS: hydrOXYzine 25 MG TABLET PO SCH (09:16)
[2020-07-19] MEDS: MULTIVIT,THER IRON,CA,FA & MIN 1 TABLET PO SCH (09:16)
[2020-07-19] MEDS: FLUTICASONE HFA 220MCG INHALER INH SCH (09:16)
--- NOTE | 2020-07-19 09:39 | Discharge Summary ---
Discharge Provider Provider Patient information: Note initiated : 07/19/20 at 9:32 am Service Date, if different from initiated Date: [] Patient: Kristen Mckeon 54 y/o F admitted on 07/14/20 for shortness of breath. Chief Complaint: [] Date of admission: 07/14/20 20:38 Discharge date: 07/19/20 Primary care physician: Renita Hart Consults: 07/14/20 Consult to Physician [CONS] Stat Comment: Consulting Provider: Oleg Padron Reason For Exam: Physician to Consult Discharge Meds Discharge Medications Home Medications clonazepam 1 mg tablet 1 mg PO Q8H PRN tab 09/13/19 [History Confirmed 07/15/20 Last Taken 06/13/20] levothyroxine 125 mcg tablet 112 mcg PO QDAY 09/13/19 [History Confirmed 07/15/20 Last Taken 07/14/20] metoprolol succinate 25 mg tablet,extended release 24 hr 25 mg PO QDAY 09/13/19 [History Confirmed 07/15/20 Last Taken 07/14/20] montelukast 10 mg tablet 10 mg PO QDAY tab 09/13/19 [History Confirmed 07/15/20 Last Taken 07/13/20] tramadol 50 mg tablet 50 mg PO .COMPLEX PRN 09/13/19 [History Confirmed 07/15/20 Last Taken 06/13/20] albuterol sulfate 90 mcg/actuation aerosol inhaler 2 puff INHALATION Q4H PRN #18 g 09/17/19 [Rx Confirmed 07/15/20 Last Taken 07/14/20] epinephrine 0.3 mg/0.3 mL injection, auto-injector 0.3 ml IM ONCE #2 each 09/19/19 [Rx Confirmed 07/14/20 Last Taken Unknown] ipratropium 0.5 mg-albuterol 3 mg (2.5 mg base)/3 mL nebulization soln 3 ml INHALATION QID PRN 10/28/19 [History Confirmed 07/15/20 Last Taken 07/14/20] nebulizers #1 each 10/28/19 [History Confirmed 07/14/20 Last Taken Unknown] Flovent HFA 2 inh INHALATION BID 07/14/20 [History Confirmed 07/15/20 Last Taken 07/14/20] fluticasone propion-salmeterol [Advair Diskus] 1 inh INHALATION BID 07/14/20 [History Confirmed 07/15/20 Last Taken 07/14/20] dexamethasone 6 mg PO DAILY #5 tab 07/19/20 [Rx Last Taken Unknown] COURSE Hospital Course Hospital course: By problems: 1. Acute hypoxic respiratory failure-clinically improved, on RM since yesterday with good oxygen saturation. 2. COVID-19 pneumonia-extensive bilateral infiltrates on chest imaging. She has completed 5-day course of Remdesivir on 07/18. Continue dexamethasone for 4 more days. LFTs improving. 3. History of reactive airway disease continue bronchodilators 4. Hypertension continue metoprolol 5. Hypothyroidism continue home Synthroid 6. Prophylaxis heparin Interval history Ms. Mckeon is a 54 year old F with a history of asthma/hypothyroidism/hypertension who works at [employer]. Patient has been experiencing things of low-grade fever weakness and malaise and has been tested for COVID last Monday and subsequently on which came back positive. Since then patient has self quarantined at home but has noticed worsening of her shortness of breath/weakness. She presents today to the ER significantly hypoxic in low 80s requiring 2 L oxygen to achieve saturation to 92%. Chest imaging consistent with bilateral infiltrates/COVID pneumonia. Patient was started on antiviral loading dose/dexamethasone after discussion of risks and benefits. Subsequently hospitalist service was consulted. At the time of my evaluation patient is alert and oriented. She is able to answer most of the questions. She endorses to exposure to sick contacts including multiple residents at [facility] with COVID positive. Denies loss of smell but endorses lack of appetite. Denies diarrhea, dysuria, headache, photophobia or chest palpitation. 07/15-patient currently stable continuing on dexamethasone/remdesivir treatment. White count 4.3 LFTs gradually up trending but within 3 times upper normal limit. Continue monitoring. Interval chest imaging worsening bilateral pneumonia. Currently on 1.5 L oxygen. 07/16-patient feels weak and lethargic however currently on 1.5 L oxygen. No overnight events including fever chills. White count 8.5. Repeat chest imaging in a.m.LFTs gradually up trending with ALT 171 AST 114. On antiviral treatment. No additional concerns per nursing staff. Maintaining COVID-19 precautions 07/17-patient doing well. Now on 1 L oxygen. On day 4 of antiviral treatment. LFTs downtrending. Patient clinically feels better. Chest imaging minimally improved. Discussed options of discharge in the next 48 hours on home oxygen with continued c self-isolation and dexamethasone. Transfer to medical floor today. 07/18 Patient still has mild shortness of breath but generally speaking patient feels better. Denies nausea, vomiting, fever, or chills. Patient is on 0.5 to 1 L Today patient completed 5-day course of remdesivir 07/19 Patient feels fine and does not have any complaints. She has been on room air since yesterday with good oxygen saturation. Vital signs are stable. She will be discharged home to follow with PCP. She needs to continue to be quarantined. Call PCP for medical issues. Discharge diagnosis: Acute hypoxic respiratory failure, COVID-19 pneumonia Time Spent with Patient Time attestation: Total time spent providing and/or coordinating discharge services: EXAM Constitutional Vitals: Temp Pulse Resp BP Pulse Ox 98.5 F 74 18 116/76 94 07/19/20 08:00 07/19/20 08:00 07/19/20 08:00 07/19/20 08:00 07/19/20 08:00 Additional findings Additional findings: General -no acute distress Eyes - PERRLA, EOM intact ENT no rhinorrhea, no noticeable or palpable swelling, no redness or rash around throat or on face Neck supple, no JVD, no thyromegaly Respiratory: Lungs -coarse breathing sounds (improved), no use of accessory muscles. Cardiovascular - RRR no m/r/g, GI - Normal bowel sounds, no distended, soft. Extremeties - No edema, cyanosis or clubbing Hemo/lymphatic/immune no lymphadenopathy Neurological Alert and oriented x 3, no focal neurologic deficits. Psychiatry flat affect Discharge Data Data Completed and Pending Labs on day of discharge: Labs from last 24 hours 07/19/20 07/19/20 07/18/20 06:10 06:10 06:10 WBC 10.3 RBC 4.24 Hgb 12.7 Hct 38.3 MCV 90.3 MCH 30.0 MCHC 33.2 RDW 12.7 Plt Count 214 MPV 10.3 Total Counted Pending 100 Seg Neutrophils % 74 Band Neutrophils % Not Reportable 1 Lymphocytes % 17 Monocytes % (Manual) 8 Platelet Estimate Pending Normal RBC Morphology Pending Normal Sodium 137 Potassium 4.2 Chloride 102 Carbon Dioxide 23 Anion Gap 12.0 BUN 17 Creatinine 0.7 GFR Calculation 97 Glucose 112 H Uric Acid 3.1 Calcium 8.3 L Phosphorus 3.9 Magnesium 2.4 Total Bilirubin 0.5 Direct Bilirubin < 0.2 GGT 137 H AST 22 ALT 79 H Alkaline Phosphatase 87 Lactate Dehydrogenase 225 Total Protein 6.1 Albumin 3.4 Globulin 2.7 Albumin/Globulin Ratio 1.3 Triglycerides 108 Discharge Plan Patient/Caregiver Discharge Instructions Activity: increase activity as tolerated Instructions: COVID-19, Using Oxygen at Home (GEN), Hypoxia (GEN), Pneumonia (GEN) Activity Restrictions/Additional Instructions: This discharge packet is provided to you to help keep you informed about your care. We want to ensure you get everything you need when you go home. You will also be receiving a call from us in a few days to follow up with you and see how you are doing since your discharge. This gives us a chance to listen to any concerns you maybe experiencing since you were discharged or any additional needs you may have, as well as providing us feedback on your care experience. We strive to always provide excellent care and thank you for your feedback and for choosing [facility]. Prescriptions: New dexamethasone 4 mg Tablet 6 mg PO DAILY Qty: 5 RF: 0 Continued epinephrine [EpiPen 2-Carlos Enrique] 0.3 mg/0.3 mL auto-injector 0.3 ml IM ONCE Qty: 2 RF: 1 tramadol 50 mg tablet 50 mg PO .COMPLEX PRN (Reason: Pain) RF: 0 clonazepam 1 mg tablet 1 mg PO Q8H PRN (Reason: Anxiety) RF: 0 metoprolol succinate 25 mg tablet extended release 24 hr 25 mg PO QDAY RF: 0 montelukast 10 mg tablet 10 mg PO QDAY RF: 0 levothyroxine 125 mcg tablet 112 mcg PO QDAY RF: 0 albuterol sulfate [Ventolin HFA] 90 mcg/actuation HFA aerosol inhaler 2 puff INHALATION Q4H PRN (Reason: shortness of breath or wheezing) Qty: 18 RF: 3 ipratropium-albuterol 0.5 mg-3 mg(2.5 mg base)/3 mL solution for nebulization 3 ml INHALATION QID PRN (Reason: Wheezing) RF: 0 fluticasone propion-salmeterol [Advair Diskus] 500-50 mcg/dose blister with device 1 inh INHALATION BID RF: 0 Flovent HFA 220 mcg/actuation HFA aerosol inhaler 2 inh INHALATION BID RF: 0 Discontinued promethazine 25 mg tablet 12.5 mg PO .COMPLEX PRN (Reason: Nausea) RF: 0 diphenhydramine HCl [Benadryl Allergy] 12.5 mg/5 mL liquid 12.5 mg PO Q8H PRN (Reason: Allergic Reaction) RF: 0 hydroxyzine pamoate 25 mg capsule 25 mg PO BID Qty: 60 RF: 11 fluticasone propion-salmeterol [Advair Diskus] 500-50 mcg/dose blister with device 1 inh INHALATION BID Qty: 60 RF: 12 No Action (DME) Compact Compressor Nebulizer Misc See Rx Instructions .ROUTE .MEDSUPPLY Qty: 1 RF: 0 Other Ambulatory Orders: Comprehensive Metabolic Panel (Routine) Timeframe: 3 Days Facility: [facility] - Location: Laboratory Ordered By: Nory Gay Follow Up Plan Follow up with: Simon Thomas MD [Physician] - 07/24/20 10:15 am Renita Hart ARNP [Primary Care Provider] - 07/22/20 2:00 pm Patient Disposition: Home, Self-Care Discharge Orders: Discharge Order (Routine); Ordered 07/19/20 Ordered By: Nory Gay
[2020-07-19 09:59] LABS: Lymphocytes % 30 % (15-49); Monocytes % (Manual) 9 % (1-12); Platelet Estimate NORMAL (NORMAL); RBC Morphology NORMAL (NORMAL); Segmented Neutrophils % 61 % (38-78)
== END 2020-07-19 12:07 | disposition home or self-care (01) | DRG 177 ==
LOC: ED 14:06 → ICU 20:38 → MEDSUR 07-17 14:57
PROVIDERS: ADMIT Internal Medicine; ATTEND Internal Medicine